=== PATIENT | female | born 1990 | race Caucasian/White ===

== ENCOUNTER 2017-04-14 14:31 | Emergency (ER) | payer OTHER ==
[~2017-04-14] VITALS: Ht 167.6 cm; Wt 75.9 kg
[~2017-04-14 14:31] MED LIST: ACET-704 PO; ACET325T9 PO; ALPR0.25 PO; CALC-507 PO; CETI10TA22 PO; MINIPILL PO; PHEN1PAC PO; PNV1TABL25 PO; SERT100T PO; SULF1TAB24 PO; THYR60TA PO; ZINC50TA2 PO
[2017-04-14 14:40] VITALS: BP 125/76
[2017-04-14] MEDS ORDERED: oxyCODONE/APAP 5/325 1 TAB TABLET PO ONE (15:45)
--- NOTE | 2017-04-14 19:53 | ED.ADGEN ---
Past History Past Medical History: No Pertinent History Past Surgical History: Appendectomy, Cholecystectomy Smoking: Non-smoker Alcohol Use: None Drug Use: None Adult General HPI HPI Patient is a 27-year-old woman, who presents to the emergency department with complaint of leg swelling and pain. Patient states that underwent surgery for repair of a torn labrum bursitis of the right hip that was performed by Dr. Bello at [facility] on Saturday. Patient states that surgery was uncomplicated , and she was discharged home with medication pain including Tylenol 3. She states that she noted increased swelling in the area today, and came to the ED for additional evaluation. She states that she has not attempted to contact her surgeon at this time, and came to [place] she did not have enough gas in her car to make it to the location of her surgeon. Patient denies any fevers or chills, any nausea or vomiting, any weakness, numbness, tingling, nausea or vomiting, chest pain or shortness breath. She states that the last time she took the Tylenol 3 was an hour prior to arrival in the emergency department. No discharge or drainage from the surgical site. Patient is ambulating on crutches without issue. Review of Systems Review of Systems Constitutional: Denies fever or chills [] Eyes: Denies change in visual acuity, redness, or eye pain [] HENT: Denies nasal congestion or sore throat [] Respiratory: Denies cough or shortness of breath Cardiovascular: No additional information not addressed in HPI [] GI: Denies abdominal pain, nausea, vomiting, bloody stools or diarrhea [] : Denies dysuria or hematuria [] Musculoskeletal: Denies back pain, complaining of pain in the right hip, with increased swelling at surgical site. Integument: Denies rash or skin lesions [] Neurologic: Denies headache, focal weakness or sensory changes [] Endocrine: Denies polyuria or polydipsia [] Current Medications Current Medications Current Medications Medications (Trade) Dose Ordered Sig/Dai Start Time Stop Time Status Last Admin Dose Admin Oxycodone/ Acetaminophen (Percocet 5/325) 1 tab 1X ONCE 04/14/17 15:45 04/14/17 15:46 DC 04/14/17 16:08 1 TAB Allergies Allergies Allergies Coded Allergies Type Severity Reaction Last Updated Verified milk Allergy Intermediate 11/5/16 Yes pineapple Allergy Intermediate 06/23/16 Yes venom-honey bee Allergy Intermediate 06/23/16 Yes Physical Exam Physical Exam Constitutional: Well developed, well nourished, no acute distress, non-toxic appearance. [] HENT: Normocephalic, atraumatic, bilateral external ears normal, oropharynx moist, no oral exudates, nose normal. [] Eyes: PERRLA, EOMI, conjunctiva normal, no discharge. [] Neck: Normal range of motion, no tenderness, supple, no stridor. [] Cardiovascular:Heart rate regular rhythm, no murmur , S1, S2, rubs or gallops. [ ] Lungs & Thorax: Bilateral breath sounds clear to auscultation, no wheezing, rhonchi, rales. No chest or crepitus or tenderness. [] Abdomen: Bowel sounds normal, soft, no tenderness, no rebound, rigidity, no guarding, no masses, no pulsatile masses. [] Skin: Warm, dry, no erythema, no rash. [] Back: No tenderness, no CVA tenderness. [] Extremities: Patient with Steri-Strips in place, and healing surgical incisions over the right hip. Patient noted to have mild swelling with tenderness in his area, ecchymosis noted, with mild redness but no evidence of induration, abscess formation, drainage, or other concerning findings. Examination is consistent with a postsurgical examination. No cyanosis, no clubbing, ROM intact , no edema. [] Neurologic: Alert and oriented X 3, normal motor function, normal sensory function, no focal deficits noted. [] Psychologic: Affect normal, judgement normal, mood normal. [] Current Patient Data Vital Signs Vital Signs Date Time Temp Pulse Resp B/P (MAP) Pulse Ox O2 Delivery O2 Flow Rate FiO2 04/14/17 14:40 98.0 84 16 97 EKG EKG Not indicated. [] Radiology/Procedures Radiology/Procedures Not indicated. [] Course & Med Decision Making Course & Med Decision Making Pertinent Labs and Imaging studies reviewed. (See chart for details) Patient well-appearing, vital signs within normal limits, examination is consistent with post procedural findings, no concerning findings identified and examination. I did speak with the patient's surgeon, and discussed findings with him. At this time no indication for additional evaluation or treatment, patient receive a dose of hydrocodone the emergency department, instructed to continue other medications as directed by her surgeon, he did also instruct for her to contact his office with additional questions or concerns, and to attend her scheduled appointment on . I did discuss with patient concerning symptoms she is fever, drainage, or other evidence of infection that would indicate concerning findings, patient was also given a list of concerning conditions would prompt return with the discharge paperwork. Patient discharged home in stable condition with significant other, with plan and precautions as stated. Final Impression Final Impression [] Problems: Dragon Disclaimer Dragon Disclaimer This electronic medical record was generated, in whole or in part, using a voice recognition dictation system. Departure: Impression: Primary Impression: Leg pain, right Disposition: HOME, SELF-CARE Condition: IMPROVED MARILU CHARLES DO Apr 14, 2017 19:53
== END 2017-04-14 16:10 | disposition home or self-care (01) ==
LOC: ER 14:31
DX: M79.604 Pain in right leg (principal); M25.551 Pain in right hip; R22.41 Localized swelling, mass and lump, right lower limb; Z91.030 Bee allergy status; Z91.011 Allergy to milk products; Z91.018 Allergy to other foods
CPT/HCPCS: 99282